=== PATIENT | male | born 1960 | race Two or more races ===

== ENCOUNTER 2021-10-03 17:38 | Emergency (ER) | payer OTHER ==
[~2021-10-03] VITALS: Ht 170.2 cm; Wt 81.6 kg
[2021-10-03 18:01] VITALS: BP 155/93
--- NOTE | 2021-10-03 18:37 | NUR ---
Patient discharged to home in stable condition. Written and verbal after care instructions given. Patient verbalizes understanding of instruction.
== END 2021-10-03 18:38 | disposition home or self-care (01) ==
LOC: ER 17:46
DX: F32.9 Major depressive disorder, single episode, unspecified (principal); Z76.0 Encounter for issue of repeat prescription